=== PATIENT | male | born 1985 ===

== ENCOUNTER 2022-04-19 13:02 | Emergency (ER) | payer MEDICAID ==
[2022-04-19] MEDS ORDERED: Thiamine 200 MG/2 ML MDV IVPUSH STA (13:36)
[2022-04-19] MEDS ORDERED: Lactated Ringers 1,000 ML IV STA (13:36)
[2022-04-19] MEDS ORDERED: chlordiazePOXIDE 25 MG Cap PO ONE (13:36)
[2022-04-19] MEDS ORDERED: Ondansetron 4 MG Tab.DIS PO ONE (13:37)
[2022-04-19 14:28] LABS: CARBON DIOXIDE,CO2 25.4 mmol/L (21.0-32.0)
== END 2022-04-19 16:31 | disposition home or self-care (01) ==
LOC: MW.ED 13:02
DX: F10.239 Alcohol dependence with withdrawal, unspecified (principal); Z20.822 Contact with and (suspected) exposure to COVID-19
CPT/HCPCS: 36415; 80053; 80307; 82550; 83735; 85025; 85610; 87635; 93005; 96361; 96374; 99285; A9270; J3411; J7120; U0002

== ENCOUNTER → 2022-06-30 | Emergency (ER) | payer SELFPAY | LOC: MW.ED 06:17 ==